=== PATIENT | male | born 1935 ===

== ENCOUNTER 2018-11-06 08:56 | Outpatient (CLI) | payer OTHER ==
[~2018-11-06] VITALS: Ht 172.7 cm; Wt 72.6 kg
== END 2018-11-06 09:15 | disposition home or self-care (01) ==
LOC: OFIC 805 08:56
DX: J31.0 Chronic rhinitis (principal); H61.21 Impacted cerumen, right ear; H91.8X3 Other specified hearing loss, bilateral